=== PATIENT | male | born 1970 | race African-American/Black ===

== ENCOUNTER 2019-01-07 10:17 | Inpatient (IN) | payer OTHER ==
[2019-01-07 11:54] VITALS: BMI 28.8
--- NOTE | 2019-01-07 12:42 | HP ---
CIWA Score Nausea/Vomitin Muscle Tremors: 4-Moderate,w/Arms Extend Anxiety: 5 Agitation: 1-Slight > Activity Paroxysmal Sweats: 1-Minimal Palms Moist Orientation: 0-Oriented Tacttile Disturbances: 7Continuous Hallucination Auditory Disturbances: 0-None Visual Disturbances: 0-None Headache: 0-None Present CIWA-Ar Total Score: 21 - Admission Criteria OASAS Guidelines: Admission for Medically Managed Detox: Requires at least one of the followin. CIWA greater than 12 2. Seizures within the past 24 hours 3. Delirium tremens within the past 24 hours 4. Hallucinations within the past 24 hours 5. Acute intervention needed for co occurring medical disorder 6. Acute intervention needed for co occurring psychiatric disorder 7. Severe withdrawal that cannot be handled at a lower level of care (continued vomiting, continued diarrhea, abnormal vital signs) requiring intravenous medication and/or fluids 8. Admission ROS [facility] Chief Complaint: detox from EtOH, crack, THC Allergies/Adverse Reactions: Allergies Allergy/AdvReac Type Severity Reaction Status Date / Time No Known Allergies Allergy Verified 01/07/19 11:48 History of Present Illness: 48M w/ HTN presenting for detox from EtOH, crack, THC. Drinks ~30x 22oz bottles of beer x30ys. Drinks first thing in the morning. Started drinking [age]y/o. Last drink was ~0400. Has blacked out >10x. Has fallen and hit head multiple times(~10x), last CT H was 19s y/o. Last hospitalization in 2016 for fall. Hematemesis last 1mo prior. Bloody stools last week. Last melena was a few weeeks prior. Smokes $200-$300 crack, daily. Last usage ~0200. Methadone use was last week. MJ $20, occasionally. Denies IVDU. Smokes up to 1ppd. Has detoxed 3x in the past, 2x in the past 2weeks at [facility]. Has been substance-free for up to 1ys, at 2017. Currently homelessness ~6mo. Formerly, worked in [employer]. Incarcerated for 3ys, 6ys prior, for robbery. - Ebola screening Have you traveled outside of the country in the last 21 days: No (N) Have you had contact with anyone from an Ebola affected area: No Do you have a fever: No - Review of Systems Constitutional: Chills EENT: denies: Blurred Vision, Double Vision, Difficulty Swallowing Respiratory: denies: Cough, Productive cough Cardiac: denies: Chest Pain, Palpitations GI: denies: Nausea, Vomiting : denies: Burning, Dysuria Musculoskeletal: reports: Back Pain Integumentary: denies: Change in Color, Flushing Neuro: denies: Headache, Dizziness Patient History - Patient Medical History Hx Asthma: No Hx Cancer: No Hx Cardiac Disorders: No Hx Congestive Heart Failure: No Hx Hypertension: Yes Hx Diabetes: No - Patient Surgical History Hx Abdominal Surgery: No Hx Appendectomy: No Hx Cholecystectomy: No Other Surgical History: childhood neck I&D - Smoking Cessation Smoking history: Current every day smoker Have you smoked in the past 12 months: No Initiated information on smoking cessation: No - Substance & Tx. History Hx Alcohol Use: Yes Hx Substance Use: Yes Substance Use Type: Alcohol, Cocaine, Marijuana - Substances abused Alcohol Substance route: Oral Frequency: Daily Amount used: (30) 22oz bottle beer Age of first use: 18 Date of last use: 01/07/19 Marijuana/Hashish Substance route: Smoking Frequency: Daily Amount used: $20 Age of first use: 19 Date of last use: 01/05/19 Crack Substance route: Smoking Frequency: Daily Amount used: $250-300 Age of first use: 22 Date of last use: 01/07/19 Family Disease History - Family Disease History Family Disease History: CA: Mother (EtOH dependence, breast CA), Other: Mother, Sister (Cerebral Palsy) Admission Physical Exam S - Vital Signs Vital Signs: Vital Signs - 24 hr 01/07/19 11:49 Temperature 98.0 F Pulse Rate 81 Respiratory 18 Rate Blood Pressure 143/81 - Physical General Appearance: Yes: Obese HEENTM: Yes: Other (well-healed scar(3cm) to upper occiput) Respiratory: Yes: Chest Non-Tender, Lungs Clear, No Accessory Muscle Use Neck: Yes: No masses,lesions,Nodules Cardiology: Yes: Regular Rhythm, Regular Rate, S1, S2. No: Irregularly Irregular Abdominal: Yes: Non Tender, Soft. No: Tenderness Musculoskeletal: Yes: full range of Motion Extremities: Yes: Other (b/l toes with scaly thickened nails) Neurological: Yes: Fully Oriented, Alert Inpatient Rehab Admission - Rehab Decision to Admit Inpatient rehab admission?: No
[2019-01-07] MEDS ORDERED: MAG HYDROX/AL HYDROX/SIMETH 30 ML UNIT-DOSE CUP PO PRN (13:01)
[2019-01-07] MEDS ORDERED: hydrOXYzine PAMOATE 25 MG CAPSULE (FP) PO PRN (13:01)
[2019-01-07] MEDS ORDERED: MELATONIN 5 MG TABLETS PO PRN (13:01)
[2019-01-07] MEDS ORDERED: IBUPROFEN 400 MG TABLET (FP) PO PRN (13:01)
[2019-01-07] MEDS ORDERED: MAGNESIUM CITRATE 300 ML BOTTLE PO PRN (13:01)
[2019-01-07] MEDS ORDERED: METHOCARBAMOL 500 MG TABLET PO PRN (13:01)
[2019-01-07] MEDS ORDERED: ACETAMINOPHEN 325 MG TABLET (FP) PO PRN ×2 (13:01)
[2019-01-07] MEDS ORDERED: MENTHOL/PHENOL 1 EACH UD MM PRN (13:01)
[2019-01-07] MEDS ORDERED: chlordiazePOXIDE HCL 25 MG CAPSULE PO PRN (13:01)
[2019-01-07] MEDS ORDERED: BISMUTH SUBSALICYLATE 524 MG/30 ML UD PO PRN (13:01)
[2019-01-07] MEDS ORDERED: MAGNESIUM HYDROX 2400MG/30ML ORAL SUSPENSION 30 ML CUP PO PRN (13:01)
[2019-01-07] MEDS ORDERED: FLUCONAZOLE 50 MG TABLET PO SCH (14:20)
[2019-01-07 16:56] LABS: HEMOGLOBIN 13.6 GM/dL (11.7-16.9); MCH 27.4 pg (25.7-33.7); MCHC 33.1 g/dl (32.0-35.9); MEAN CELL VOLUME 82.7 fl (80-96); MEAN PLT VOLUME 9.3 fl (7.5-11.1); PLATELET COUNT 192 K/MM3 (134-434); RBC 4.96 M/mm3 (4.00-5.60); RDW 15.9 % (11.9-15.9); WHITE BLOOD COUNT 5.8 K/mm3 (4.0-10.0)
[2019-01-07 17:06] LABS: ALBUMIN 3.7 g/dl (3.4-5.0); BILIRUBIN,TOTAL 0.6 mg/dL (0.2-1); BLOOD UREA NITROGEN 22.2 mg/dL (7-18); CALCIUM 9.1 mg/dL (8.5-10.1); CREATININE 1.1 mg/dL (0.55-1.3); POTASSIUM 4.1 mmol/L (3.5-5.1); TOT PROT 7.1 g/dl (6.4-8.2)
[2019-01-07] MEDS: chlordiazePOXIDE HCL 25 MG CAPSULE PO SCH ×2 (17:39→22:19)
[2019-01-07] MEDS: THIAMINE HCL 100 MG TABLET (FP) PO SCH (22:19)
[2019-01-08] MEDS: chlordiazePOXIDE HCL 25 MG CAPSULE PO SCH ×4 (05:51→22:27)
--- NOTE | 2019-01-08 07:50 | PN ---
Teaching Attending Note Name of Resident: Mango Godinez ATTENDING PHYSICIAN STATEMENT I saw and evaluated the patient. I reviewed the resident's note and discussed the case with the resident. I agree with the resident's findings and plan as documented. SUBJECTIVE: I agreed with the resident's subjective findings OBJECTIVE: I agreed with the resident's objective findings ASSESSMENT AND PLAN: Patient admitted for alcohol dependence with uncomplicated withdrawals.
--- NOTE | 2019-01-08 09:41 | PN ---
S CIWA - CIWA Score Nausea/Vomitin Muscle Tremors: 2 Anxiety: 2 Agitation: 2 Paroxysmal Sweats: 1-Minimal Palms Moist Orientation: 0-Oriented Tacttile Disturbances: 1-Very Mild Itch/Numbness Auditory Disturbances: 0-None Visual Disturbances: 0-None Headache: 2-Mild CIWA-Ar Total Score: 12 [facility] Progress Note (SOAP) Subjective: alert,irritable,anxious,interrupted sleep,tremor,pain in the body Objective: 01/08/19 09:38 Vital Signs Temperature 97.4 F L 01/08/19 09:33 Pulse Rate 81 01/08/19 09:33 Respiratory Rate 18 01/08/19 09:33 Blood Pressure 106/57 L 01/08/19 09:33 O2 Sat by Pulse Oximetry (%) Laboratory Last Values WBC 5.8 K/mm3 (4.0-10.0) 01/07/19 13:30 RBC 4.96 M/mm3 (4.00-5.60) 01/07/19 13:30 Hgb 13.6 GM/dL (11.7-16.9) 01/07/19 13:30 Hct 41.0 % (35.4-49) 01/07/19 13:30 MCV 82.7 fl (80-96) 01/07/19 13:30 MCH 27.4 pg (25.7-33.7) 01/07/19 13:30 MCHC 33.1 g/dl (32.0-35.9) 01/07/19 13:30 RDW 15.9 % (11.9-15.9) 01/07/19 13:30 Plt Count 192 K/MM3 (134-434) 01/07/19 13:30 MPV 9.3 fl (7.5-11.1) 01/07/19 13:30 Sodium 142 mmol/L (136-145) 01/07/19 13:30 Potassium 4.1 mmol/L (3.5-5.1) 01/07/19 13:30 Chloride 106 mmol/L (98-107) 01/07/19 13:30 Carbon Dioxide 27 mmol/L (21-32) 01/07/19 13:30 Anion Gap 9 MMOL/L (8-16) 01/07/19 13:30 BUN 22.2 mg/dL (7-18) H 01/07/19 13:30 Creatinine 1.1 mg/dL (0.55-1.3) 01/07/19 13:30 Est GFR (CKD-EPI)AfAm 90.88 01/07/19 13:30 Est GFR (CKD-EPI)NonAf 78.41 01/07/19 13:30 Random Glucose 101 mg/dL (74-106) 01/07/19 13:30 Calcium 9.1 mg/dL (8.5-10.1) 01/07/19 13:30 Total Bilirubin 0.6 mg/dL (0.2-1) 01/07/19 13:30 AST 26 U/L (15-37) 01/07/19 13:30 ALT 38 U/L (13-61) 01/07/19 13:30 Alkaline Phosphatase 70 U/L (45-117) 01/07/19 13:30 Total Protein 7.1 g/dl (6.4-8.2) 01/07/19 13:30 Albumin 3.7 g/dl (3.4-5.0) 01/07/19 13:30 01/08/19 09:39 hiv and quantiferon test pending Assessment: 01/08/19 09:39 withdrawal symptom Plan: continue detox librium regimen,bun 22.2 probablue due to dehyration,encourage oral fluid
[2019-01-08] MEDS: NICOTINE 14 MG/24 HOURS TOPICAL PATCH TD SCH (10:47)
[2019-01-08] MEDS: PRENATAL VITAMINS W/ FOLIC ACID TABLET (FP) PO SCH (10:47)
[2019-01-08] MEDS: BACITRACIN/POLYMYXIN B SULFATE 15 GM TUBE TP SCH (10:48)
[2019-01-08] MEDS: THIAMINE HCL 100 MG TABLET (FP) PO SCH (22:28)
[2019-01-09] MEDS: chlordiazePOXIDE HCL 25 MG CAPSULE PO SCH ×2 (05:29→10:53)
--- NOTE | 2019-01-09 09:05 | PN ---
S CIWA - CIWA Score Nausea/Vomitin-Mild Nausea/No Vomiting Muscle Tremors: 1-None Visible, but [place] Anxiety: 2 Agitation: 2 Paroxysmal Sweats: No Perspiration Orientation: 0-Oriented Tacttile Disturbances: 1-Very Mild Itch/Numbness Auditory Disturbances: 0-None Visual Disturbances: 0-None Headache: 2-Mild CIWA-Ar Total Score: 9 BHS Progress Note (SOAP) Subjective: alert,irritable,anxious,interrupted sleep,pain in the body Objective: 01/09/19 09:04 Vital Signs Temperature 97.5 F L 01/09/19 07:19 Pulse Rate 68 01/09/19 07:19 Respiratory Rate 18 01/09/19 07:19 Blood Pressure 109/60 01/09/19 07:19 O2 Sat by Pulse Oximetry (%) Assessment: 01/09/19 09:04 withdrawal symptom Plan: continue detox librium regimen
[2019-01-09 09:29] VITALS: BP 117/71; PULSE 86; TEMP 97.8
[2019-01-09] MEDS: NICOTINE 14 MG/24 HOURS TOPICAL PATCH TD SCH (10:53)
[2019-01-09] MEDS: PRENATAL VITAMINS W/ FOLIC ACID TABLET (FP) PO SCH (10:53)
[2019-01-09] MEDS: BACITRACIN/POLYMYXIN B SULFATE 15 GM TUBE TP SCH (10:53)
--- NOTE | 2019-01-09 11:34 | EKG ---
Test Reason : Blood Pressure : / mmHG Vent. Rate : 070 BPM Atrial Rate : 070 BPM P-R Int : 150 ms QRS Dur : 086 ms QT Int : 388 ms P-R-T Axes : 056 077 048 degrees QTc Int : 419 ms NORMAL SINUS RHYTHM MODERATE VOLTAGE CRITERIA FOR LVH, MAY BE NORMAL VARIANT EARLY REPOLARIZATION BORDERLINE ECG NO PREVIOUS ECGS AVAILABLE Confirmed by MAHESH PERALTA, REYES ([id number]) on 01/09/2019 11:33:36 AM Referred By: Confirmed By:REYES ARAGON MD
--- NOTE | 2019-01-09 14:15 | PN ---
[facility] Progress Note Note: pt was re-evaluated as to his reason for signing out AMA, pt c/o of withdrawals s/s and aggressive symptomatic management attempted however, in spite of extensive motivational counseling regarding the risk of relapse, seizures, DT's and or loss,pt chose to sign out AMA.
--- NOTE | 2019-01-09 14:20 | DS ---
[facility] Detox Discharge Summary Admission Date: 01/07/19 - History Present History: Alcohol Dependence - Physical Exam Results Vital Signs: Vital Signs Temperature 97.8 F 01/09/19 09:29 Pulse Rate 86 01/09/19 09:29 Respiratory Rate 18 01/09/19 09:29 Blood Pressure 117/71 01/09/19 09:29 O2 Sat by Pulse Oximetry (%) Pertinent Admission Physical Exam Findings: pt arrived in withdrawals Laboratory Tests 01/07/19 01/07/19 01/07/19 13:30 13:30 13:30 WBC 5.8 RBC 4.96 Hgb 13.6 Hct 41.0 MCV 82.7 MCH 27.4 MCHC 33.1 RDW 15.9 Plt Count 192 MPV 9.3 Sodium 142 Potassium 4.1 Chloride 106 Carbon Dioxide 27 Anion Gap 9 BUN 22.2 H Creatinine 1.1 Est GFR (CKD-EPI)AfAm 90.88 Est GFR (CKD-EPI)NonAf 78.41 Random Glucose 101 Calcium 9.1 Total Bilirubin 0.6 AST 26 ALT 38 Alkaline Phosphatase 70 Total Protein 7.1 Albumin 3.7 RPR Titer Nonreactive HIV 1&2 Ag/Ab, 4th Gen 01/07/19 13:30 WBC RBC Hgb Hct MCV MCH MCHC RDW Plt Count MPV Sodium Potassium Chloride Carbon Dioxide Anion Gap BUN Creatinine Est GFR (CKD-EPI)AfAm Est GFR (CKD-EPI)NonAf Random Glucose Calcium Total Bilirubin AST ALT Alkaline Phosphatase Total Protein Albumin RPR Titer HIV 1&2 Ag/Ab, 4th Gen Non reactive pt is aaox3 ambulating pt insisted on leaving and signed out AMA. pt states his reason for leaving is because he just found out his mother passed. - Treatment Hospital Course: Discharged Condition Good, Rehab Referral Accepted Patient has Accepted a Rehab Referral to: referral provided - Medication Discharge Medications: Ambulatory Orders NK [No Known Home Medication] 01/07/19 - Diagnosis (1) Alcohol dependence with uncomplicated withdrawal Status: Chronic - AMA Did Patient Leave Against Medical Advice: Yes
[2019-01-10] MEDS ORDERED: chlordiazePOXIDE HCL 10 MG CAPSULE PO PRN
[2019-01-10] MEDS ORDERED: chlordiazePOXIDE HCL 10 MG CAPSULE PO SCH (05:00)
[2019-01-11] MEDS ORDERED: chlordiazePOXIDE HCL 10 MG CAPSULE PO SCH (05:00)
[2019-01-12] MEDS ORDERED: chlordiazePOXIDE HCL 10 MG CAPSULE PO ONE (05:00)
[2019-01-14] MEDS ORDERED: FLUCONAZOLE 50 MG TABLET PO ONE (13:07)
== END 2019-01-09 12:36 | disposition left against medical advice (07) | DRG 770 ==
LOC: YASAS 10:17 → Y6N 14:07
PROVIDERS: ADMIT Surgery; ATTEND Surgery
PROC: HZ2ZZZZ Detoxification Services for Substance Abuse Treatment (ICD-10-PCS; principal; 2019-01-07)
DX: F10.230 Alcohol dependence with withdrawal, uncomplicated (principal); F14.20 Cocaine dependence, uncomplicated; F12.20 Cannabis dependence, uncomplicated; E66.3 Overweight; Z68.28 Body mass index [BMI] 28.0-28.9, adult
CPT/HCPCS: 36415; 80053; 85027; 86480; 86593; 87389; 93005; 93010

== ENCOUNTER 2023-12-13 10:08 | Inpatient (IN) | payer OTHER ==
[2023-12-13 12:20] VITALS: BMI 27.1
[2023-12-13] MEDS ORDERED: BENZONATATE 200 MG CAPSULE PO PRN (12:22)
[2023-12-13] MEDS ORDERED: POLYETHYLENE GLYCOL (HEALTHYLAX) 3350 17 GM PACKET PO PRN (12:22)
[2023-12-13] MEDS ORDERED: BISMUTH SUBSALICYLATE 262 MG/15 ML BTL PO PRN (12:22)
[2023-12-13] MEDS ORDERED: IBUPROFEN 400 MG TABLET (FP) PO PRN (12:22)
[2023-12-13] MEDS ORDERED: MAGNESIUM HYDROX 2400MG/30ML ORAL SUSPENSION 30 ML CUP PO PRN (12:22)
[2023-12-13] MEDS ORDERED: ONDANSETRON *ODT* 4 MG TABLET SL PRN (12:22)
[2023-12-13] MEDS ORDERED: BENZOCAINE/MENTHOL (CHLORASEPTIC ) LOZENGE MM PRN (12:22)
[2023-12-13] MEDS ORDERED: guaiFENesin 600 MG TABLET.ER (FP) PO PRN (12:22)
[2023-12-13] MEDS ORDERED: LOPERAMIDE HCL 2 MG CAPSULE PO PRN (12:22)
[2023-12-13] MEDS ORDERED: NALOXONE (NARCAN) HCL 4 MG/0.1 ML SPRAY NS PRN (12:22)
[2023-12-13] MEDS ORDERED: ACETAMINOPHEN 325 MG TABLET (FP) PO PRN (12:22)
[2023-12-13] MEDS ORDERED: NICOTINE POLACRILEX 2 MG GUM BUC PRN (12:22)
[2023-12-13] MEDS ORDERED: DICYCLOMINE HCL 10 MG CAPSULE PO PRN (12:22)
[2023-12-13] MEDS ORDERED: NALOXONE HCL 0.4 MG/ML VIAL IM PRN (12:22)
[2023-12-13] MEDS ORDERED: MAG HYDROX/AL HYDROX/SIMETH 30 ML UNIT-DOSE CUP PO PRN (12:22)
[2023-12-13] MEDS ORDERED: IBUPROFEN 600 MG TABLET (FP) PO PRN (12:22)
[2023-12-13] MEDS: diazePAM 5 MG TABLET PO ONE (20:32)
[2023-12-13] MEDS: MELATONIN 5 MG TABLETS PO SCH (22:29)
[2023-12-13] MEDS: METHOCARBAMOL 500 MG TABLET PO PRN (22:29)
[2023-12-13] MEDS: diazePAM 5 MG TABLET PO SCH (22:29)
[2023-12-13] MEDS: THIAMINE 100 MG TABLET PO SCH (22:29)
[2023-12-14] MEDS: hydrOXYzine PAMOATE 25 MG CAPSULE (FP) PO PRN (10:11)
[2023-12-14] MEDS: PRENATAL VITAMINS W/ FOLIC ACID TABLET (FP) PO SCH (10:11)
[2023-12-14] MEDS: NICOTINE 21 MG/24 HOURS TOPICAL PATCH TD SCH (10:11)
[2023-12-14 11:37] LABS: HEMATOCRIT 43.1 % (35.4-49); HEMOGLOBIN 14.9 GM/dL (11.7-16.9); MCH 28.8 pg (25.7-33.7); MCHC 34.7 g/dl (32.0-35.9); MEAN PLT VOLUME 9.5 fl (7.5-11.1); PLATELET COUNT 255 10^3/uL (134-434); POTASSIUM 4.1 mmol/L (3.5-5.1); RBC 5.19 M/mm3 (4.00-5.60); WHITE BLOOD COUNT 4.2 K/mm3 (4.0-10.0)
[2023-12-14 11:44] LABS: ALBUMIN 3.4 g/dl (3.4-5.0); BLOOD UREA NITROGEN 21.2 mg/dL (7-18); CALCIUM 9.6 mg/dL (8.5-10.1)
[2023-12-14 11:49] LABS: BILIRUBIN,TOTAL 0.3 mg/dL (0.2-1); TOT PROT 6.8 g/dl (6.4-8.2)
[2023-12-15] MEDS: diazePAM 5 MG TABLET PO SCH (05:27)
[2023-12-15] MEDS: diazePAM 5 MG TABLET PO PRN (10:26)
[2023-12-16] MEDS: diazePAM 5 MG TABLET PO SCH (05:53)
[2023-12-17] MEDS: diazePAM 5 MG TABLET PO ONE (06:03)
[2023-12-18 06:32] VITALS: BP 122/81; PULSE 75; RESP 18; TEMP 97.5
== END 2023-12-18 09:03 | disposition home or self-care (01) | DRG 775 ==
LOC: YASAS 10:08 → Y6N 12:30
PROVIDERS: ADMIT Allergy & Immunology; ATTEND Surgery
PROC: HZ2ZZZZ Detoxification Services for Substance Abuse Treatment (ICD-10-PCS; principal; 2023-12-13)
DX: F10.230 Alcohol dependence with withdrawal, uncomplicated (principal); F17.210 Nicotine dependence, cigarettes, uncomplicated
CPT/HCPCS: 36415; 80053; 80305; 80307; 85027; 86780; 93005; 93010

== ENCOUNTER 2024-02-26 14:52 | Inpatient (IN) | payer OTHER ==
[2024-02-26 15:34] VITALS: BMI 26.9
[2024-02-26] MEDS ORDERED: POLYETHYLENE GLYCOL (HEALTHYLAX) 3350 17 GM PACKET PO PRN (16:01)
[2024-02-26] MEDS ORDERED: BENZOCAINE/MENTHOL (CHLORASEPTIC ) LOZENGE MM PRN (16:01)
[2024-02-26] MEDS ORDERED: MAG HYDROX/AL HYDROX/SIMETH 30 ML UNIT-DOSE CUP PO PRN (16:01)
[2024-02-26] MEDS ORDERED: NICOTINE POLACRILEX 2 MG GUM BUC PRN (16:01)
[2024-02-26] MEDS ORDERED: BENZONATATE 200 MG CAPSULE PO PRN (16:01)
[2024-02-26] MEDS ORDERED: LOPERAMIDE HCL 2 MG CAPSULE PO PRN (16:01)
[2024-02-26] MEDS ORDERED: guaiFENesin 600 MG TABLET.ER (FP) PO PRN (16:01)
[2024-02-26] MEDS ORDERED: BISMUTH SUBSALICYLATE 524 MG/30 ML PO PRN (16:01)
[2024-02-26] MEDS ORDERED: NALOXONE (NARCAN) HCL 4 MG/0.1 ML SPRAY NS PRN (16:01)
[2024-02-26] MEDS ORDERED: hydrOXYzine PAMOATE 25 MG CAPSULE (FP) PO PRN (16:01)
[2024-02-26] MEDS ORDERED: NALOXONE (NYS OPIOID OVERDOSE PROGRAM) 4 MG/0.1 ML SPRAY NS PRN (16:01)
[2024-02-26] MEDS ORDERED: IBUPROFEN 400 MG TABLET (FP) PO PRN (16:01)
[2024-02-26] MEDS ORDERED: MAGNESIUM HYDROX 2400MG/30ML ORAL SUSPENSION 30 ML CUP PO PRN (16:01)
[2024-02-26] MEDS ORDERED: DICYCLOMINE HCL 10 MG CAPSULE PO PRN (16:01)
[2024-02-26] MEDS ORDERED: ACETAMINOPHEN 325 MG TABLET (FP) PO PRN (16:01)
[2024-02-26] MEDS: METHOCARBAMOL 500 MG TABLET PO PRN (19:55)
[2024-02-26] MEDS: IBUPROFEN 600 MG TABLET (FP) PO PRN (19:55)
[2024-02-26] MEDS: THIAMINE 100 MG TABLET PO SCH (21:45)
[2024-02-26] MEDS: MELATONIN 5 MG TABLETS PO SCH (21:45)
[2024-02-27] MEDS ORDERED: chlordiazePOXIDE HCL 25 MG CAPSULE PO PRN (08:40)
[2024-02-27] MEDS: NICOTINE 21 MG/24 HOURS TOPICAL PATCH TD SCH (10:12)
[2024-02-27] MEDS: PRENATAL VITAMINS W/ FOLIC ACID TABLET (FP) PO SCH (10:12)
[2024-02-27] MEDS: NALTREXONE HCL 50 MG TABLET PO ONE (10:13)
[2024-02-27] MEDS: chlordiazePOXIDE HCL 25 MG CAPSULE PO SCH (10:13)
[2024-02-27 11:21] LABS: HEMATOCRIT 45.1 % (35.4-49); HEMOGLOBIN 15.2 GM/dL (11.7-16.9); MCH 27.6 pg (25.7-33.7); MCHC 33.7 g/dl (32.0-35.9); MEAN CELL VOLUME 82.1 fl (80-96); PLATELET COUNT 197 10^3/uL (134-434); WHITE BLOOD COUNT 5.3 K/mm3 (4.0-10.0)
[2024-02-27 11:29] LABS: CHLORIDE 108 mmol/L (98-107); SODIUM 140 mmol/L (136-145)
[2024-02-27 11:33] LABS: ALBUMIN 3.4 g/dl (3.4-5.0)
[2024-02-27 11:36] LABS: SGOT/AST 28 U/L (15-37); SGPT/ALT 35 U/L (13-61)
[2024-02-27 11:37] LABS: BILIRUBIN,TOTAL 0.8 mg/dL (0.2-1)
[2024-02-27 11:38] LABS: ALK PHOS 78 U/L (45-117); TOT PROT 6.9 g/dl (6.4-8.2)
[2024-02-27 11:39] LABS: CALCIUM 9.1 mg/dL (8.5-10.1)
[2024-02-27 11:40] LABS: ANION GAP 5 mmol/L (4-13); CO2 28 mmol/L (21-32); GLUCOSE,RANDOM 86 mg/dL (74-106)
[2024-02-27 13:18] LABS: HIV INTERPRETATION NEGATIVE (NEGATIVE)
[2024-02-27] MEDS: MIRTAZAPINE 15 MG TABLET (FP) PO SCH (22:41)
[2024-02-28] MEDS: NALTREXONE HCL 50 MG TABLET PO SCH (10:33)
[2024-02-29] MEDS: chlordiazePOXIDE HCL 25 MG CAPSULE PO SCH (05:38)
[2024-02-29] MEDS: ONDANSETRON *ODT* 4 MG TABLET SL PRN (12:23)
[2024-02-29 12:54] VITALS: BP 118/72; PULSE 87; RESP 20; TEMP 98.9
[2024-03-01] MEDS ORDERED: chlordiazePOXIDE HCL 10 MG CAPSULE PO PRN
[2024-03-01] MEDS ORDERED: chlordiazePOXIDE HCL 10 MG CAPSULE PO SCH (05:00)
[2024-03-02] MEDS ORDERED: chlordiazePOXIDE HCL 10 MG CAPSULE PO SCH (05:00)
[2024-03-03] MEDS ORDERED: chlordiazePOXIDE HCL 10 MG CAPSULE PO ONE (05:00)
== END 2024-02-29 13:57 | disposition left against medical advice (07) | DRG 770 ==
LOC: YASAS 14:52 → Y3N 19:19
PROVIDERS: ADMIT Allergy & Immunology; ATTEND Surgery
PROC: HZ2ZZZZ Detoxification Services for Substance Abuse Treatment (ICD-10-PCS; principal; 2024-02-26)
DX: F10.230 Alcohol dependence with withdrawal, uncomplicated (principal); F14.20 Cocaine dependence, uncomplicated; F17.210 Nicotine dependence, cigarettes, uncomplicated; R26.89 Other abnormalities of gait and mobility; S99.921D Unspecified injury of right foot, subsequent encounter; W22.09XD Striking against other stationary object, subsequent encounter; Z99.89 Dependence on other enabling machines and devices
CPT/HCPCS: 36415; 80053; 80305; 80307; 85027; 86780; 86803; 87389; Q0162